=== PATIENT | female | born 1995 | race Native Hawaiian/Other Pacific Islander ===

== ENCOUNTER 2017-01-18 03:59 | Emergency (ER) | payer SELFPAY ==
[~2017-01-18] VITALS: Ht 157.5 cm; Wt 65.0 kg
[2017-01-18 04:02] VITALS: BP 104/69; PULSE 97; RESP 18; TEMP 98.7; O2SAT 100
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
[2017-01-18] MEDS ORDERED: IBUP-232 PO (04:20)
[2017-01-18] MEDS ORDERED: ACETAMINOPHEN 325 MG TAB PO ONE (04:30)
== END 2017-01-18 04:56 | disposition home or self-care (01) ==
LOC: NEPE 03:59
DX: S00.83XA Contusion of other part of head, initial encounter (principal); Y04.2XXA Assault by strike against or bumped into by another person, initial encounter
CPT/HCPCS: 99283